=== PATIENT | female | born 1950 | race Caucasian/White ===

== ENCOUNTER 2017-01-31 07:30 | Inpatient (IN) ==
[2017-02-05] MEDS ORDERED: LIDOCAINE 1% (10mg/ml) 2mL INJ PF SDV ID ONE (06:00)
[2017-02-05] MEDS ORDERED: ACETAMINOPHEN 500 MG TABLET PO ONE (06:00)
[2017-02-05] MEDS ORDERED: METOCLOPRAMIDE 10mg/2ml INJECTION IVP ONE (06:00)
[2017-02-05] MEDS ORDERED: NOZIN NASAL SWAB NAS ONE ×2 (06:00→15:08)
[2017-02-05] MEDS ORDERED: ONDANSETRON 4 MG/2 ML INJECTION IVP ONE (06:00)
[2017-02-05] MEDS ORDERED: TRANEXAMIC ACID 1,000 MG in NS 100 ML IV ONE ×2 (06:00→07:00)
[2017-02-05] MEDS ORDERED: FAMOTIDINE PB 20 MG/50 ML BAG IV ONE (06:00)
[2017-02-05] MEDS ORDERED: EPINEPHrine 0.25 MG, BUPIVACAINE 0.25% PF 30 ML, MORPHINE SULFATE 15 MG, KETOROLAC INJ ... OPSITE ONE (08:00)
[2017-02-05 10:00] VITALS: BMI 31.4
[2017-02-05] MEDS: NS 1,000 ML IV SCH ×3 (10:14→15:26)
--- NOTE | 2017-02-05 11:56 | Anesthesia Preoperative Report ---
Anesthesia Preoperative Record - Date and Time Date: 02/05/17 Preoperative Diagnosis: Rt TKA (RA) M17.11 NPO Since Date: 02/04/17 NPO Since Time: 18:00 Allergies/Adverse Reactions: Allergies Allergy/AdvReac Type Severity Reaction Status Date / Time Sulfa (Sulfonamide Allergy Unknown TONGUE Verified 01/31/17 09:07 Antibiotics) SWELLING - Vital Signs Vital Signs: Temperature 98.5 F 02/05/17 09:58 Pulse Rate 83 02/05/17 10:03 Respiratory Rate 14 02/05/17 09:58 Blood Pressure 133/87 02/05/17 09:58 Pulse Oximetry 94 02/05/17 09:58 Height and Weight: Height 1.63 m Weight 83.1 kg Body Mass Index 31.4 - Medications Inpatient Medications: Current Medications Cefazolin Sodium (Kefzol) 2 g IVP PREOP ONE Stop: 02/05/17 12:01 Epinephrine HCl 0.25 mg/Bupivacaine HCl 30 ml/Morphine Sulfate 15 mg/Ketorolac Tromethamine 60 mg/Sodium Chloride 65.25 mls @ 1 mls/hr OPSITE INTRAOP ONE PRN Reason: Protocol Stop: 02/08/17 01:14 Sodium Chloride (Normal Saline) 1,000 mls @ 50 mls/hr IV .Q20H JESU Last Admin: 02/05/17 10:14 Dose: 50 mls/hr Sodium Chloride (Iv Flush) 10 - 80 ml IV PRN PRN PRN Reason: Flushing Home Medications: Home Medications Medication Instructions Recorded Confirmed Type Duloxetine HCl [Cymbalta] 60 mg PO HS #0 09/29/12 01/28/17 History Lisinopril/Hctz 20/12.5 [Prinzide 1 tab PO DAILY #0 09/29/12 01/28/17 History 20/12.5] Atorvastatin Calcium 40 mg PO HS #0 tab 02/18/16 01/28/17 History Is Patient on Beta Lavon?: No - Medical History Respiratory: Reports: Asthma, Sleep Apnea (pressumptive) Cardiovascular: Reports: Hypertension, Other (sinus infection a couple weeks ago. All cleared up ) Gastrointestional: Reports: Gastroesophageal Reflux Disease (infrequent) Neuro/Musculoskeletal: Reports: Depression (and anxiety), Headaches Renal/Endocrine: Reports: Diabetes Mellitus Type 2, Other (only have one kidney , history of right nephrectomy) Other History: Reports: Cancer (right kidney) - Surgical History HEENT Surgeries: Reports: Tonsillectomy GI Surgery/Treatments: Reports: Colonoscopy, EGD, Other (Expl laparotomy; hemorrhoidectomy) Musculoskeletal Surgery/Tx: Reports: Other (Lt and Rt bunionectomy) Reproductive Surgery/Treatment: Reports: Hysterectomy, Other (breast biopsy x4) Anesthesia Reactions: None Hx Family Anesthesia Reaction: No History of Motion Sickness: No - Social History Smoking Status: Former smoker Hx Chewing Tobacco Use: No Second Hand Exposure: No Substance Use Type: does not use Alcohol Intake Frequency: does not drink - Pertinent Findings Laboratory: CBC and BMP 02/05/17 10:13 02/05/17 10:13 BMP 02/05/17 10:13 Sodium 142 Potassium 4.2 Chloride 104 Carbon Dioxide 22 BUN 26.0 H Creatinine 1.0 Glucose 130 H Calcium 10.1 EKG: Sinus Rhythm - Physical Exam Respiratory Exam: Present: lungs clear, bilateral breath sounds equal Cardiovascular Exam: Present: regular rate and rhythm - Airway Assessment Mallampati Score: II TMD: 2 Fingerbreadths Neck Extension: fair Overall Assessment: may be difficult intubation (small mouth opening) - ASA ASA Score: 3 - Plan Plan: SAB vs GA with adductor canal block Anesthesia: General TIVA, General Inhalation Gases, Regional Block, Neuroaxial Peripheral Nerve Block: Saphenous-Right - Discussion Discussion: Discussed risks/options/alternatives of anesthesia and questions answered. Patient consents. Nursing pain assessment noted. Present for Discussion: family member Attestation Statement: Prior to the delivery of any anesthetic medication, I examined the patient, developed the plan, obtained the patient's consent and discussed the risk and benefits of the procedure with the patient/guardian. - Additional Information Seen by Anesthesia: Yes
[2017-02-05] MEDS ORDERED: CEFAZOLIN 1 G INJECTION IVP ONE (12:00)
[2017-02-05] MEDS ORDERED: FentaNYL 100 MCG/2 ML INJECTION ONE (12:03)
[2017-02-05] MEDS ORDERED: MIDAZOLAM 2mg/2ml INJECTION ONE (12:04)
[2017-02-05] MEDS ORDERED: VANCOMYCIN 1,000 MG INJECTION ONE (12:09)
[2017-02-05] MEDS ORDERED: PHENYLEPHRINE INJ 10 MG/ML VIAL IV ONE (13:13)
[2017-02-05] MEDS ORDERED: ROPIVACAINE 0.5% (5mg/ml) 30ml INJ ONE (13:59)
[2017-02-05] MEDS ORDERED: VANCOMYCIN 1,000 MG INJECTION IAR ONE (14:02)
--- NOTE | 2017-02-05 14:12 | Operative Note ---
- Procedure Preoperative Diagnosis: Right knee primary degenerative joint disease Postoperative Diagnosis: Same as preoperative diagnosis. Surgeon: Latoya Lovelace MD Software Release Engineer: Earl Conley Complications: None. Anesthesia: Spinal. Estimated Blood Loss: See Anesthesia Record. Fluids: Please see Anesthesia Record. Description of Procedure: Mrs. Adams and her right knee were identified and marked in the preoperative holding area. She was brought back to the operating suite after a saphenous nerve block was placed in the preoperative holding area. Spinal anesthetic was administered and she was placed supine on the operating table. The right lower extremity was prepped and draped in my normal sterile fashion. Timeout was performed. The [employer] robot was used during the surgery. She had a fixed varus deformity. A standard anterior midline incision followed by medial parapatellar arthrotomy was performed. Anterior fat pad and meniscus were removed. The patella was resurfaced to a size 29. She had complete loss of bone over the medial femoral condyle and to a lesser extent in the patellofemoral joint. Tibial and femoral arrays were placed both within the original incision. Checkpoints were then placed both in the femur and the tibia. The bone was then registered with the [employer] robot. Osteophytes were removed and gaps were captured both 90 and 0 with correction. The [employer] software was used to balance the knee obtaining a 18 mm gaps throughout. The [employer] robotic arm was then used to assist with the bone cuts. Posterior osteophytes and remaining meniscus were removed. Trial components were placed. We used a 3 femur and a 3 tibia with a 9 mm spacer. She tracked well and was well balanced throughout range of motion. The leg was exsanguinated and the tourniquet inflated to 250 mmHg. The bone was prepared for cementing and components were cemented into place and allowed to cure in extension. The tourniquet was let down and hemostasis obtained with electrocautery. The knee was ranged one more time to ensure good stability, balance and patellar tracking. 1 g of vancomycin powder was then placed into the knee joint. The capsulotomy was then closed with #1 Vicryl. I then left my medical records assistant to close the subcutaneous tissue with 2-0 Vicryl. Running 4-0 Monocryl will be used in the subcuticular layer. Dermabond will be used on the skin followed by sterile dressing. After drapes are removed patient will be taken to recovery room under the care of anesthesia.
[2017-02-05] MEDS ORDERED: TRAMADOL 50 MG TABLET PO PRN (15:08)
[2017-02-05] MEDS ORDERED: NAPROXEN 220 MG TABLET PO PRN (15:08)
[2017-02-05] MEDS ORDERED: DiphenhydrAMINE 25 MG CAPSULE PO PRN (15:08)
[2017-02-05] MEDS ORDERED: LORazepam 1 MG TABLET PO PRN (15:08)
[2017-02-05] MEDS ORDERED: DiphenhydrAMINE 50 MG/ML INJECTION IVP PRN (15:08)
[2017-02-05] MEDS ORDERED: ONDANSETRON 4 MG/2 ML INJECTION IVP PRN (15:08)
[2017-02-05] MEDS ORDERED: SALINE FLUSH 10ml SYRINGE IV PRN (15:51)
[2017-02-05] MEDS ORDERED: FALL RISK - PHARMACY CONSULT XX ONE (15:54)
--- NOTE | 2017-02-05 16:02 | XRay Report ---
Indication: postoperative image PROCEDURE: XR knee RT 2V: Encounter: Initial Comparison: November 28, 2016 Findings: Postoperative changes of right total knee replacement are seen. There is expected postoperative subcutaneous gas. No evidence of hardware failure or acute fracture. No retained radiopaque surgical instruments or sponges. Overlying material causing artifact. Impression: New right total knee prosthesis without evidence of immediate complication. .
[2017-02-05] MEDS: ACETAMINOPHEN 325 MG TABLET PO SCH ×2 (17:03→20:25)
[2017-02-05] MEDS: Oxycodone *IR* 5 MG TABLET PO PRN ×2 (17:04→20:24)
--- NOTE | 2017-02-05 18:54 | Anesthesia Postoperative Note ---
- Date and Time Date: 02/05/17 Time: 18:50 - Status Patient Participated in Evaluation: Patient Participated in Person Vital Signs: Temperature 97.1 F 02/05/17 15:15 Pulse Rate 64 02/05/17 18:15 Respiratory Rate 16 02/05/17 15:15 Blood Pressure 139/67 02/05/17 18:15 Pulse Oximetry 94 02/05/17 18:15 Respiratory Function: Airway Patent Cardiovascular Function: Regular Pulse Mental Status: Alert and Oriented Pain Intensity: 0 Hydration: Taking PO Fluids Complications During Recover: None Apparent - Follow-Up Instructions Instructions: Per Surgeon
[2017-02-05] MEDS: DOCUSATE SODIUM 100 MG CAPSULE PO SCH (20:24)
[2017-02-05] MEDS: ASPIRIN *EC* 81 MG TABLET PO SCH (20:25)
[2017-02-05] MEDS ORDERED: SENNOSIDES 8.6 MG TABLET PO SCH (21:00)
[2017-02-05] MEDS ORDERED: ATORVASTATIN 40 MG TABLET PO SCH (21:00)
[2017-02-05] MEDS ORDERED: DULOXETINE 60 MG CAPSULE PO SCH (21:00)
[2017-02-05] MEDS: NOZIN NASAL SWAB NAS SCH (21:05)
[2017-02-05] MEDS: CEFAZOLIN 2 G in NS 100 ML IV SCH (21:06)
[2017-02-06 03:13] VITALS: RESP 16
[2017-02-06] MEDS: NS 1,000 ML IV SCH (04:29)
[2017-02-06] MEDS: Oxycodone *IR* 5 MG TABLET PO PRN ×4 (04:32→13:10)
[2017-02-06] MEDS: CEFAZOLIN 2 G in NS 100 ML IV SCH (04:41)
[2017-02-06] MEDS: NOZIN NASAL SWAB NAS SCH ×2 (06:03→13:11)
--- NOTE | 2017-02-06 07:58 | Orthopedic Progress Note ---
Date: Subjective/Severity of Illness: Doing well. Pain is controlled. She has been mobile with good tolerance. No CP or resp complaints. BP a little low 90/50-109/60 range. Creat 1.0 up to 1.2 this AM. Will hold Lisinopril/HCTZ med. No new concerns. Orthopedic Objective PO Vital signs: Temperature 96.9 F 02/06/17 07:49 Pulse Rate 75 02/06/17 07:49 Respiratory Rate 16 02/06/17 07:49 Blood Pressure 148/73 H 02/06/17 07:49 Pulse Oximetry 97 02/06/17 07:49 Height and Weight: Height 5 ft 4 in Weight 183 lb 3.266 oz Body Mass Index 31.4 - Constitutional General Appearance: Present: alert, cooperative, no acute distress - Respiratory Exam Present: non-labored - Extremities Exam Extremities: Present: pulses intact, normal capillary refill. Absent: calf tenderness - Surgical Site Incision: Mepilex dressing intact, no drainage - Integumentary Exam Present: pink, warm, dry - Neurological Exam Present: intact to light touch, no deficits - Psychiatric Exam Present: alert, normal affect - Labs Result Diagrams: 02/06/17 04:16 02/06/17 04:16 Abnormal lab results 02/05/17 02/05/17 02/06/17 Range/Units 10:13 10:13 04:16 RBC 3.65 L (4.00-5.20) M/MM3 Hgb 11.3 L D (12-16) GM/DL Hct 35.1 L D (36-46) % Plt Count 409 H (130-400) T/MM3 MPV 9.0 L (9.4-12.4) UM3 Neut % (Auto) 68.0 H (33-66) % Chloride (98-107) MEQ/L Anion Gap 16 H (5-15) MEQ/L BUN 26.0 H (7-17) MG/DL Glucose 130 H (65-110) MG/DL Calcium (8.4-10.2) MG/DL 02/06/17 Range/Units 04:16 RBC (4.00-5.20) M/MM3 Hgb (12-16) GM/DL Hct (36-46) % Plt Count (130-400) T/MM3 MPV (9.4-12.4) UM3 Neut % (Auto) (33-66) % Chloride 108 H (98-107) MEQ/L Anion Gap (5-15) MEQ/L BUN 28.0 H (7-17) MG/DL Glucose (65-110) MG/DL Calcium 8.2 L D (8.4-10.2) MG/DL H & H 02/05/17 02/06/17 Range/Units 10:13 04:16 Hgb 14.8 11.3 L D (12-16) GM/DL Hct 44.1 35.1 L D (36-46) % Orthopedic Assessment and Plan (1) Primary osteoarthritis of right knee Status: Acute Assessment and Plan: Slight bump in creat likely due to hypotension. Will hold Lisinopril / HCTZ for now. Monitor blood pressures. Her PCP has diabetes as a diagnosis for her. Her fasting BS this AM was 109 and she is not on any diabetic agents. ASA, SCDs and mobilization for DVT coverage. CM for discharge planning. - Anticoagulation Therapy Anticoagulation: other (ASA 81mg BID.) Hospital Course Summary Disclaimer: The visit summary below is not to be considered part of the above Progress Note.
[2017-02-06] MEDS: ACETAMINOPHEN 325 MG TABLET PO SCH ×2 (08:12→12:33)
[2017-02-06] MEDS: ASPIRIN *EC* 81 MG TABLET PO SCH (08:12)
[2017-02-06] MEDS: DOCUSATE SODIUM 100 MG CAPSULE PO SCH (08:12)
[2017-02-06] MEDS ORDERED: LISINOPRIL/HCTZ 20/12.5 MG TABLET PO SCH (09:00)
[2017-02-06] MEDS ORDERED: POLYETHYL GLYCOL 3350 17gm PACKET PO SCH (09:00)
[2017-02-06 11:50] VITALS: BP 140/64; PULSE 74; TEMP 96.4; O2SAT 99
--- NOTE | 2017-02-06 14:25 | Discharge Summary ---
Orthopedic Discharge Info Date of admission: 02/05/17 09:39 Primary care physician: Latoya العراقي MD Attending Physician: Jude Lovelace MD Consults: 02/05/17 09:47 Consult to Anesthesiology [CONS] Routine Consulting Provider: GILDARDO Arias Reason For Exam: Preoperative Assessment 02/05/17 15:08 Case Management Consult [CONS] Routine Reason For Exam: Discharge Planning DME-Walker [CONS] Routine Height: 5 ft 4 in Weight: 183 lb 3.266 oz Comment: change dressing in 2 weeks Total Joint Outpatient Therapy [CONS] Routine Comment: change dressing in 2 weeks - Discharge Diagnosis (1) Primary osteoarthritis of right knee Status: Acute - Procedures Procedures: Procedures Right Total knee replacement (07/27/13) - Laboratory Result Diagrams: 02/06/17 04:16 02/06/17 04:16 Laboratory: Abnormal lab results 02/06/17 02/06/17 Range/Units 04:16 04:16 RBC 3.65 L (4.00-5.20) M/MM3 Hgb 11.3 L D (12-16) GM/DL Hct 35.1 L D (36-46) % Chloride 108 H (98-107) MEQ/L BUN 28.0 H (7-17) MG/DL Calcium 8.2 L D (8.4-10.2) MG/DL H & H 02/05/17 02/06/17 Range/Units 10:13 04:16 Hgb 14.8 11.3 L D (12-16) GM/DL Hct 44.1 35.1 L D (36-46) % Orthopedic Discharge HPI - HPI Comments This patient was admitted for elective surgical tx of end stage degenerative joint disease that failed to respond to conservative treatment. Further details of this is found in the admission H&P. Orthopedic Hospital Course Hospital course: 02/06/17 14:20 After appropriate preoperative clearance and signing of operative consent, the patient was given IV antibiotics, according to orthopedic protocol. The patient was taken to the operating room and underwent elective joint arthroplasty. Following surgery, antibiotics were discontinued less than 24 hours according to joint protocol. Appropriate anticoagulants were initiated and SCDs added for DVT prevention. The dressing was clean, dry, and intact. Pain control was obtained via multimodal approach. Bowel motivation addressed with scheduled and PRN medications. Early mobilization was initiated through PT services. Discharge arrangements made by a collaborative effort between the patient and Case Management. Follow-up is scheduled in 2-3 weeks. Discharge instructions given by orthopedic providers and nursing staff at discharge. Discharge condition was good. She was hypotensive Post op day one. Earl APPLE, held her RORY and her BP readings went back to hypertensive. RORY was resumed at discharge. Ongoing care required?: No - Postoperative Anemia patient received IVF, labs monitored daily, no intervention required, HGB drop- acceptable Discharge Plan - Med Rec/Dispo Referrals/Follow Up: Jude Lovelace MD [Physician] - 02/26/17 9:00 am [facility] Instructions: [facility] Postop Instructions Additional Instructions: PHYSICAL THERAPY FEBRUARY 08 AT 10:45 AT [employer]. CHECK IN AT 10: 30 AND BRING COMPETED PAPERWORK WITH YOU. Monisha Narayanan#[phone]. Prescriptions: New Aspirin *EC* [Ecotrin] 81 mg PO BID #84 tab Oxycodone *IR* [Roxicodone *Ir*] 5 - 15 mg PO Q3H PRN #60 tab PRN Reason: Pain Acetaminophen [Tylenol] 650 mg PO QID #100 tab Continue Duloxetine HCl [Cymbalta] 60 mg PO HS #0 Lisinopril/Hctz 20/12.5 [Prinzide 20/12.5] 1 tab PO DAILY #0 Atorvastatin Calcium 40 mg PO HS #0 tab - Disposition 01 Discharged Home, Self-Care
[2017-02-06] MEDS ORDERED: SENNOSIDES 8.6 MG TABLET PO PRN (14:34)
[2017-02-07] MEDS ORDERED: BISACODYL 10 MG SUPPOSITORY RECTALLY SCH (20:00)
== END 2017-02-06 14:55 | disposition home or self-care (01) | DRG 470 ==
LOC: SRG 02-05 09:39
PROVIDERS: ADMIT Orthopaedic Surgery; ATTEND Orthopaedic Surgery